=== PATIENT | female | born 1995 | race Two or more races ===

== ENCOUNTER 2019-05-06 20:57 | Emergency (ER) | payer SELFPAY | END 2019-05-06 23:38 | disposition left against medical advice (07) | LOC: ER 20:57 | DX: Z53.21 Procedure and treatment not carried out due to patient leaving prior to being seen by health care provider (principal) ==

== ENCOUNTER 2020-02-23 22:36 | Emergency (ER) | payer OTHER ==
[~2020-02-23] VITALS: Ht 165.1 cm; Wt 56.0 kg
[2020-02-24] MEDS ORDERED: ACETAMINOPHEN 325MG TABLET PO STA (00:26)
[2020-02-24] MEDS ORDERED: BACITRACIN ZINC OINT UDPKT TOP ONE (00:30)
[2020-02-24 02:27] VITALS: BP 124/87
== END 2020-02-24 02:27 | disposition home or self-care (01) ==
LOC: ER 22:36
DX: S00.83XA Contusion of other part of head, initial encounter (principal); W18.39XA Other fall on same level, initial encounter; Y93.89 Activity, other specified; Y92.89 Other specified places as the place of occurrence of the external cause; Y99.8 Other external cause status; R07.81 Pleurodynia; M54.2 Cervicalgia; Z72.89 Other problems related to lifestyle
CPT/HCPCS: 70486; 71101; 99285

== ENCOUNTER 2022-12-09 20:34 | Emergency (ER) | payer MEDICAID, OTHER ==
[~2022-12-09] VITALS: Ht 162.6 cm; Wt 53.0 kg
[2022-12-09 20:44] VITALS: BP 110/77; PULSE 102; RESP 18; TEMP 98.3; O2SAT 98
== END 2022-12-09 23:06 | disposition left against medical advice (07) ==
LOC: ER 20:34
DX: F10.129 Alcohol abuse with intoxication, unspecified (principal); R56.9 Unspecified convulsions; Y90.0 Blood alcohol level of less than 20 mg/100 ml
CPT/HCPCS: 99283

== ENCOUNTER 2023-10-23 19:53 | Inpatient (IN) | payer MEDICAID ==
[~2023-10-23] VITALS: Ht 162.6 cm; Wt 52.6 kg
[~2023-10-23 19:53] MED LIST: LEVE10006 PO
[2023-10-23 20:29] LABS: CLARITY URINE CLOUDY (CLEAR); COLOR URINE ORANGE (YELLOW); GLUCOSE URINE NEGATIVE (NEGATIVE); KETONES URINE NEGATIVE (NEGATIVE); LEUKOCYTE ESTERASE URINE 1+ (NEGATIVE); NITRITE URINE POSITIVE (NEGATIVE); OCCULT BLOOD URINE NEGATIVE (NEGATIVE); PH URINE 7.5 (4.5-8.0); PROTEIN URINE 1+ (NEGATIVE); SPECIFIC GRAVITY URINE 1.026 (1.005-1.030)
[2023-10-23 20:40] LABS: BACTERIA URINE 1+; SQUAMOUS EPITHELIAL CELL URINE 2+ /lpf (RARE/1+)
[2023-10-23] MEDS: ONDANSETRON HCL 4MG/2ML INJ IV ONE (20:45)
[2023-10-23] MEDS: SODIUM CHLORIDE 0.9% 1,000 ML IV ONE (20:45)
[2023-10-23 20:49] LABS: HEMATOCRIT. 27.7 % (36.0-48.0); HEMOGLOBIN. 8.7 g/dL (12.0-16.0); MEAN CORPUSCULAR HEMOGLOBIN 25.7 pg (28.0-32.0); MEAN CORPUSCULAR HGB CONC 31.4 g/dL (31.0-37.0); MEAN CORPUSCULAR VOLUME 81.6 fL (81.0-99.0); MEAN PLATELET VOLUME 6.8 fl (7.4-10.4); RED BLOOD CELL COUNT 3.39 mill/uL (4.2-5.4); RED CELL DISTRIBUTION WIDTH 17.5 % (11.6-14.6)
[2023-10-23 20:55] LABS: CHLORIDE 104 mEq/L (98-107); SODIUM 137 mEq/L (136-145)
[2023-10-23 20:56] LABS: CALCIUM 9.4 mg/dL (8.7-10.4); CARBON DIOXIDE 28 mEq/L (21-32)
[2023-10-23 21:01] LABS: CREATININE 0.5 mg/dL (0.6-1.0); GLUCOSE 103 mg/dL (70-105); UREA NITROGEN BLOOD 11 mg/dL (9-23)
[2023-10-23 21:03] LABS: ALANINE AMINOTRANSFERASE 33 IU/L (10-49); ALBUMIN 4.3 g/dL (3.2-4.8); ASPARTATE AMINOTRANSFERASE 64 IU/L (<34)
[2023-10-23 21:04] LABS: BILIRUBIN TOTAL 3.1 mg/dL (0.1-1.0); PROTEIN TOTAL 6.9 g/dL (6.0-8.3)
[2023-10-23 21:19] LABS: DIFFERENTIAL COMMENT 1; PLATELET 48 x1000/uL (130-400)
[2023-10-23] MEDS: PANTOPRAZOLE SODIUM 40 MG/VIAL IV ONE (22:01)
[2023-10-23 22:18] LABS: HYPOCHROMASIA 1+; PLATELET ESTIMATE MARKEDLY DECREASED
[2023-10-23] MEDS ORDERED: NITROFURANTOIN MACROCRYSTAL 25MG CAPSULE PO ONE (23:30)
[2023-10-23 23:49] LABS: INR 1.4; PARTIAL THROMBOPLASTIN TIME 29.8 sec (23.4-31.0); PROTHROMBIN TIME 14.8 sec (9.6-11.0)
[2023-10-23] MEDS: FOLIC ACID 1 MG, THIAMINE HCL 100 MG, MVI, ADULT NO.1 10 ML in DEXTROSE 5% WATER 1,000 ML IV ONE (23:56)
[2023-10-24] VITALS (8 sets, daily range): BP systolic 109–124; BP diastolic 60–73; PULSE 69–80; RESP 18; TEMP 97.6–98.5
[2023-10-24] MEDS: NITROFURANTOIN MACROCRYSTAL 50MG CAPSULE PO NR (00:31)
[2023-10-24 01:19] LABS: HCG SCREEN NEGATIVE
[2023-10-24] MEDS ORDERED: DOCUSATE SODIUM 100MG CAPSULE PO PRN (03:30)
[2023-10-24] MEDS ORDERED: GUAIFENESIN 200MG/10ML SUGAR FREE UDC PO PRN (03:30)
[2023-10-24] MEDS ORDERED: CLONIDINE 0.1MG TABLET PO PRN (03:30)
[2023-10-24] MEDS ORDERED: IPRATROPIUM/ALBUTEROL 0.5-3(2.5)MG/3ML NEB HHN PRN (03:30)
[2023-10-24] MEDS ORDERED: MAGNESIUM/ALUMINUM HYDROXIDE/SIMETHICONE 30ML UDC PO PRN (03:30)
[2023-10-24] MEDS ORDERED: ACETAMINOPHEN 325MG TABLET PO PRN ×2 (03:30)
[2023-10-24] MEDS ORDERED: LEVOFLOXACIN 750MG PREMIX 150 ML IV SCH (06:00)
[2023-10-24] MEDS: METRONIDAZOLE 500 MG PREMIX 100 ML IV SCH (06:02)
[2023-10-24] MEDS: THIAMINE HCL 100MG TABLET PO SCH (08:41)
[2023-10-24] MEDS: LEVETIRACETAM 1000MG PREMIX 100 ML IV SCH (08:42)
[2023-10-24] MEDS: PANTOPRAZOLE SODIUM 40 MG/VIAL IV SCH ×2 (08:42→21:36)
[2023-10-24] MEDS ORDERED: LEVETIRACETAM 1,000MG in NACL 100ML PREMIX IV SCH (09:00)
[2023-10-24] MEDS ORDERED: THIAMINE HCL 100MG TABLET PO SCH (09:00)
[2023-10-24] MEDS ORDERED: LORAZEPAM 2MG/ML INJ IV PRN (10:00)
[2023-10-24 11:08] LABS: HEMATOCRIT 23.3 % (36.0-48.0); HEMOGLOBIN 7.4 g/dL (12.0-16.0)
[2023-10-24 11:27] LABS: CREATINE KINASE 19 IU/L (34-145)
[2023-10-24] MEDS: DOCUSATE SODIUM 100MG CAPSULE PO SCH (12:19)
[2023-10-24] MEDS: LEVOFLOXACIN 750MG PREMIX 150 ML IV SCH (12:19)
[2023-10-24] MEDS: OCTREOTIDE 1,000 MCG in SODIUM CHLORIDE 0.9% 98 ML IV SCH (14:13)
[2023-10-24] MEDS: DEXT 5%/0.45% NACL 1000ML 1,000 ML IV SCH (14:24)
[2023-10-24 15:28] LABS: ETHANOL BLOOD < 10 mg/dL (<10)
[2023-10-24] MEDS: ONDANSETRON HCL 4MG/2ML INJ IV PRN (16:38)
[2023-10-24 18:27] LABS: HEMATOCRIT 23.6 % (36.0-48.0); HEMOGLOBIN 7.5 g/dL (12.0-16.0)
[2023-10-24 18:37] LABS: CREATINE KINASE 24 IU/L (34-145)
[2023-10-24 22:19] LABS: HEMATOCRIT 23.3 % (36.0-48.0); HEMOGLOBIN 7.4 g/dL (12.0-16.0)
[2023-10-24 22:34] LABS: PHOSPHORUS 3.1 mg/dL (2.5-4.9)
[2023-10-25] VITALS: BP 123/75; PULSE 75; RESP 19; TEMP 98.2
[2023-10-25 03:19] LABS: HEMATOCRIT 22.2 % (36.0-48.0); HEMOGLOBIN 7.2 g/dL (12.0-16.0)
[2023-10-25 03:28] LABS: CARBON DIOXIDE 26 mEq/L (21-32); CHLORIDE 109 mEq/L (98-107); POTASSIUM 3.9 mEq/L (3.5-5.1); SODIUM 140 mEq/L (136-145)
[2023-10-25 03:29] LABS: CALCIUM 9.1 mg/dL (8.7-10.4)
[2023-10-25 03:33] LABS: CREATININE 0.5 mg/dL (0.6-1.0); IRON 65 ug/dL (50-170)
[2023-10-25 03:34] LABS: GLUCOSE 85 mg/dL (70-105)
[2023-10-25 03:35] LABS: ALBUMIN 3.7 g/dL (3.2-4.8); TOTAL IRON BINDING CAPACITY 343 ug/dl (250-425)
[2023-10-25 03:36] LABS: ALANINE AMINOTRANSFERASE 26 IU/L (10-49); ASPARTATE AMINOTRANSFERASE 44 IU/L (<34); BILIRUBIN DIRECT 0.9 mg/dL (<=3.0); BILIRUBIN TOTAL 2.4 mg/dL (0.1-1.0); PROTEIN TOTAL 5.9 g/dL (6.0-8.3)
[2023-10-25 03:39] LABS: UREA NITROGEN BLOOD < 5 mg/dL (9-23)
[2023-10-25 04:00] VITALS: BP 105/59; PULSE 68; RESP 18; TEMP 98
[2023-10-25 04:20] LABS: FERRITIN 34 ng/mL (10-291)
[2023-10-25 04:22] LABS: VITAMIN B12 SERUM 751 pg/mL (211-911)
[2023-10-25 04:33] LABS: HEPATITIS B SURFACE ANTIGEN NEGATIVE (Negative)
[2023-10-25 04:53] LABS: HEPATITIS A AB IGM NEGATIVE (Negative)
[2023-10-25 04:55] LABS: HEPATITIS B CORE AB IGM NEGATIVE (Negative); HEPATITIS C AB NON REACTIVE (Neg) (Negative)
[2023-10-25 07:38] LABS: AMMONIA 71 uMol/L (<32); INR 1.4
[2023-10-25 07:49] LABS: HEMATOCRIT. 21.9 % (36.0-48.0); HEMOGLOBIN. 7.1 g/dL (12.0-16.0); MEAN CORPUSCULAR HEMOGLOBIN 26.7 pg (28.0-32.0); MEAN CORPUSCULAR HGB CONC 32.7 g/dL (31.0-37.0); MEAN CORPUSCULAR VOLUME 81.6 fL (81.0-99.0); MEAN PLATELET VOLUME 7.8 fl (7.4-10.4); RED BLOOD CELL COUNT 2.68 mill/uL (4.2-5.4); RED CELL DISTRIBUTION WIDTH 17.4 % (11.6-14.6)
[2023-10-25 08:00] VITALS: BP 111/77; PULSE 74; RESP 18; TEMP 99
[2023-10-25] MEDS: MULTIVITAMINS,THER W-MINERALS TABLET PO SCH (08:29)
[2023-10-25 08:36] LABS: DIFFERENTIAL COMMENT 1
[2023-10-25 08:39] LABS: WHITE BLOOD COUNT 1.1 x1000/uL (4.5-11.0)
[2023-10-25 12:00] VITALS: BP 107/70; PULSE 69; RESP 18; TEMP 99.1
[2023-10-25] MEDS ORDERED: PROPOFOL 200MG/20ML VIAL IV ONE (12:36)
[2023-10-25] MEDS ORDERED: MEPERIDINE HCL/PF 25MG/ML CPJ IV PRN (13:00)
[2023-10-25] MEDS ORDERED: ONDANSETRON HCL 4MG/2ML INJ IV PRN (13:00)
[2023-10-25] MEDS ORDERED: LABETALOL 5MG/ML 4ML INJ IV PRN (13:00)
[2023-10-25] MEDS ORDERED: HYDROMORPHONE HCL/PF 2MG/ML INJ IV PRN (13:00)
[2023-10-25] MEDS: MAGNESIUM 4 G PREMIX 100 ML IV NR (14:10)
[2023-10-25 15:10] LABS: NUCLEATED RED BLOOD CELLS 1 /100 WBC
[2023-10-25 15:11] LABS: ANISOCYTOSIS 1+; PLATELET ESTIMATE MARKEDLY DECREASED
[2023-10-25 15:12] LABS: PLATELET 40 x1000/uL (130-400)
[2023-10-25] MEDS ORDERED: NALT50TA PO (15:20)
[2023-10-25] MEDS: LACTULOSE 20G/30ML UDC PO SCH (18:37)
[2023-10-25 20:00] VITALS: BP 111/73; PULSE 70; RESP 18; TEMP 99.1
[2023-10-26] VITALS: BP 110/71; PULSE 71; RESP 18; TEMP 99.1
[2023-10-26 04:00] VITALS: BP 98/65; PULSE 66; RESP 18; TEMP 98.1
[2023-10-26 06:40] LABS: AMMONIA 49 uMol/L (<32)
[2023-10-26 06:45] LABS: CHLORIDE 109 mEq/L (98-107); POTASSIUM 3.3 mEq/L (3.5-5.1); SODIUM 141 mEq/L (136-145)
[2023-10-26 06:46] LABS: HEMOGLOBIN. 7.8 g/dL (12.0-16.0); MEAN CORPUSCULAR HEMOGLOBIN 26.8 pg (28.0-32.0); MEAN CORPUSCULAR HGB CONC 32.6 g/dL (31.0-37.0); MEAN CORPUSCULAR VOLUME 82.3 fL (81.0-99.0); MEAN PLATELET VOLUME 7.9 fl (7.4-10.4); RED BLOOD CELL COUNT 2.92 mill/uL (4.2-5.4); RED CELL DISTRIBUTION WIDTH 18.4 % (11.6-14.6)
[2023-10-26 06:48] LABS: CALCIUM 8.8 mg/dL (8.7-10.4); CARBON DIOXIDE 25 mEq/L (21-32)
[2023-10-26 06:53] LABS: CREATININE 0.7 mg/dL (0.6-1.0); GLUCOSE 108 mg/dL (70-105)
[2023-10-26 06:55] LABS: ALANINE AMINOTRANSFERASE 25 IU/L (10-49); ALBUMIN 3.8 g/dL (3.2-4.8); ASPARTATE AMINOTRANSFERASE 49 IU/L (<34); BILIRUBIN DIRECT 0.6 mg/dL (<=3.0); BILIRUBIN TOTAL 1.6 mg/dL (0.1-1.0); PHOSPHORUS 3.2 mg/dL (2.5-4.9); PROTEIN TOTAL 6.1 g/dL (6.0-8.3)
[2023-10-26 06:57] LABS: DIFFERENTIAL COMMENT 1; PLATELET 42 x1000/uL (130-400); WHITE BLOOD COUNT 1.5 x1000/uL (4.5-11.0)
[2023-10-26 07:02] LABS: UREA NITROGEN BLOOD < 5 mg/dL (9-23)
[2023-10-26] MEDS ORDERED: CARV3.1242 MT ×2 (11:43→16:43)
[2023-10-26] MEDS ORDERED: LACT10SO7 PO (11:43)
[2023-10-26] MEDS ORDERED: METR-167 MT ×2 (11:43→16:43)
[2023-10-26 12:00] VITALS: BP 103/62; PULSE 69; RESP 17; TEMP 97.4
[2023-10-26] MEDS: POTASSIUM CHLORIDE 20MEQ TABLET SR PO NR (12:07)
[2023-10-26 13:59] VITALS: BP 103/62; PULSE 69; TEMP 98; O2SAT 94
[2023-10-26 15:50] LABS: ANISOCYTOSIS 1+; PLATELET ESTIMATE DECREASED
[2023-10-26] MEDS ORDERED: PROPRANOLOL HCL 10MG TABLET PO SCH (21:00)
== END 2023-10-26 16:00 | disposition home or self-care (01) ==
LOC: ER 19:53 → 5WST 23:20 → EDBEDREQTM 10-24 00:21 → EDBEDREQ 10-24 00:21 → 7EST 10-24 06:35
PROVIDERS: ADMIT Internal Medicine; ATTEND Internal Medicine
PROC: 0DB78ZX Excision of Stomach, Pylorus, Via Natural or Artificial Opening Endoscopic, Diagnostic (ICD-10-PCS; principal; 2023-10-25)
DX: K74.60 Unspecified cirrhosis of liver (principal); I85.11 Secondary esophageal varices with bleeding; D61.818 Other pancytopenia; D68.9 Coagulation defect, unspecified; R16.2 Hepatomegaly with splenomegaly, not elsewhere classified; K76.6 Portal hypertension; K52.9 Noninfective gastroenteritis and colitis, unspecified; S00.10XA Contusion of unspecified eyelid and periocular area, initial encounter; G40.909 Epilepsy, unspecified, not intractable, without status epilepticus; F10.10 Alcohol abuse, uncomplicated; F12.10 Cannabis abuse, uncomplicated; K21.9 Gastro-esophageal reflux disease without esophagitis; K76.0 Fatty (change of) liver, not elsewhere classified; K31.9 Disease of stomach and duodenum, unspecified; Y90.9 Presence of alcohol in blood, level not specified; K29.70 Gastritis, unspecified, without bleeding; K31.89 Other diseases of stomach and duodenum; W18.39XA Other fall on same level, initial encounter; Y93.89 Activity, other specified; Y92.89 Other specified places as the place of occurrence of the external cause; Y99.8 Other external cause status
CPT/HCPCS: 36415; 70486; 74177; 76700; 80048; 80076; 80320; 81003; 82140; 82248; 82270; 82550; 82607; 82728; 83540; 83550; 83735; 84100; 84703; 85014; 85018; 85025; 85044; 86705; 86709; 86850; 86870; 86900; 87015; 87045; 87177; 87209; 87340; 87427; 87449; 88305; 88312; 88313; 89055; 99285; C1893; J1953; J1956; J2354; J2405; J2470; J2704; J3411; J3475; J3490; J7030; J7050; J7070; G0480

== ENCOUNTER 2024-04-10 00:16 | Inpatient (IN) | payer MEDICAID ==
[~2024-04-10] VITALS: Ht 167.6 cm; Wt 55.3 kg
[~2024-04-10 00:16] MED LIST changes: +CARV3.1242 MT; +FURO20TA4 PO; +PROT40 PO; +SUCR1TAB30 PO
[2024-04-10] MEDS ORDERED: LEVETIRACETAM 1,000MG in NACL 100ML PREMIX IV SCH (01:00)
[2024-04-10 01:04] LABS: HEMATOCRIT. 35.3 % (36.0-48.0); HEMOGLOBIN. 11.2 g/dL (12.0-16.0); MEAN CORPUSCULAR HEMOGLOBIN 25.4 pg (28.0-32.0); MEAN CORPUSCULAR HGB CONC 31.7 g/dL (31.0-37.0); MEAN CORPUSCULAR VOLUME 80.2 fL (81.0-99.0); MEAN PLATELET VOLUME 8.9 fl (7.4-10.4); PLATELET 71 x1000/uL (130-400); RED BLOOD CELL COUNT 4.41 mill/uL (4.2-5.4); RED CELL DISTRIBUTION WIDTH 22.8 % (11.6-14.6); WHITE BLOOD COUNT 9.1 x1000/uL (4.5-11.0)
[2024-04-10 01:07] LABS: DIFFERENTIAL COMMENT 1
[2024-04-10] MEDS: SODIUM CHLORIDE 0.9% 1,000 ML IV ONE (01:07)
[2024-04-10] MEDS: LORAZEPAM 2MG/ML INJ IV ONE (01:07)
[2024-04-10 01:19] LABS: CHLORIDE 107 mEq/L (98-107); SODIUM 141 mEq/L (136-145)
[2024-04-10 01:20] LABS: CALCIUM 9.2 mg/dL (8.7-10.4); CARBON DIOXIDE 22 mEq/L (21-32)
[2024-04-10 01:25] LABS: GLUCOSE 180 mg/dL (70-105); UREA NITROGEN BLOOD 18 mg/dL (9-23)
[2024-04-10 01:31] LABS: ETHANOL BLOOD < 10 mg/dL (<10)
[2024-04-10] MEDS: LEVETIRACETAM 1000MG PREMIX 100 ML IV NR (01:39)
[2024-04-10 01:42] LABS: HCG SCREEN NEGATIVE
[2024-04-10 04:05] LABS: ALANINE AMINOTRANSFERASE 32 IU/L (10-49); ALBUMIN 4.5 g/dL (3.2-4.8); ASPARTATE AMINOTRANSFERASE 48 IU/L (<34); BILIRUBIN DIRECT 0.4 mg/dL (<=3.0); BILIRUBIN TOTAL 1.2 mg/dL (0.1-1.0); PROTEIN TOTAL 7.6 g/dL (6.0-8.3)
[2024-04-10 04:30] VITALS: BP 107/68; PULSE 87; RESP 18; TEMP 36.3068
[2024-04-10] MEDS ORDERED: IPRATROPIUM/ALBUTEROL 0.5-3(2.5)MG/3ML NEB HHN PRN (05:45)
[2024-04-10] MEDS ORDERED: SPIR50TA5 (06:05)
[2024-04-10] MEDS ORDERED: NALT50TA6 (06:05)
[2024-04-10] MEDS ORDERED: OXYC5TAB3 (06:07)
[2024-04-10] MEDS: PANTOPRAZOLE SODIUM 40 MG/VIAL IV SCH (06:42)
[2024-04-10 07:17] LABS: ANISOCYTOSIS 3+
[2024-04-10 07:18] LABS: HYPOCHROMASIA 1+
[2024-04-10 07:19] LABS: PLATELET ESTIMATE DECREASED
[2024-04-10 08:00] VITALS: BP 110/52; PULSE 84; RESP 18; TEMP 36.33624; O2SAT 99
[2024-04-10] MEDS: LEVETIRACETAM 1000MG PREMIX 100 ML IV SCH (10:09)
[2024-04-10] MEDS: MVI, ADULT NO.1 10 ML, FOLIC ACID 1 MG, THIAMINE HCL 100 MG in SODIUM CHLORIDE 0.9% 1,0... IV NR (11:04)
[2024-04-10 12:00] VITALS: BP 116/73; PULSE 83; RESP 20; TEMP 36.00288; O2SAT 99
[2024-04-10 16:00] VITALS: BP 120/69; PULSE 89; RESP 18; TEMP 36.114; O2SAT 100
[2024-04-10 16:46] LABS: CREATINE KINASE MB FRACTION 5.5 ng/mL (0.5-3.6)
[2024-04-10 16:47] LABS: AMMONIA 57 uMol/L (<32)
[2024-04-10 16:48] LABS: CREATINE KINASE 127 IU/L (34-145)
[2024-04-10 16:55] LABS: INR 1.3; PROTHROMBIN TIME 14.5 sec (9.6-11.0)
[2024-04-10 17:03] LABS: CLARITY URINE CLOUDY (CLEAR); COLOR URINE DARK YELLOW (YELLOW); GLUCOSE URINE NEGATIVE (NEGATIVE); KETONES URINE TRACE (NEGATIVE); LEUKOCYTE ESTERASE URINE NEGATIVE (NEGATIVE); NITRITE URINE NEGATIVE (NEGATIVE); OCCULT BLOOD URINE NEGATIVE (NEGATIVE); PROTEIN URINE 1+ (NEGATIVE); SPECIFIC GRAVITY URINE 1.028 (1.005-1.030)
[2024-04-10 17:05] LABS: TROPONIN I HIGH SENSITIVITY 6213 ng/L (3.0-34)
[2024-04-10 17:22] LABS: *AMPHETAMINES SCREEN URINE NEGATIVE (NEGATIVE)
[2024-04-10 17:23] LABS: *BARBITURATES SCREEN URINE NEGATIVE (NEGATIVE); *BENZODIAZEPINES SCREEN URINE PRESUMPTIVE POSITIVE (NEGATIVE); *COCAINE SCREEN URINE NEGATIVE (NEGATIVE); CANNABINOID URINE SCREEN PRESUMPTIVE POSITIVE (NEGATIVE); ECSTASY MDMA SCREEN URINE NEGATIVE (NEGATIVE); METHADONE URINE SCREEN NEGATIVE (NEGATIVE); OPIATES URINE SCREEN NEGATIVE (NEGATIVE); PHENCYCLIDINE URINE SCREEN NEGATIVE (NEGATIVE)
[2024-04-10 18:04] LABS: BACTERIA URINE NONE SEEN; RBC URINE NONE SEEN /hpf (0-2); SQUAMOUS EPITHELIAL CELL URINE NONE SEEN /lpf (RARE/1+); WBC URINE NONE SEEN /hpf (0-2); YEAST URINE NONE SEEN
[2024-04-10 20:00] VITALS: BP 106/57; PULSE 72; RESP 18; TEMP 36.78072; O2SAT 100
[2024-04-10] MEDS: DEXT 5%/0.9% NACL 1,000 ML IV SCH (20:57)
[2024-04-10 22:15] LABS: CREATINE KINASE MB FRACTION 4.1 ng/mL (0.5-3.6)
[2024-04-11] VITALS: BP 98/55; PULSE 63; RESP 18; TEMP 36.6696; O2SAT 100
[2024-04-11] MEDS: ONDANSETRON HCL 4MG/2ML INJ IV PRN (02:34)
[2024-04-11 04:00] VITALS: BP 114/75; PULSE 69; RESP 18; TEMP 37.00296; O2SAT 100
[2024-04-11 06:44] LABS: BASOPHILS % 0.2 % (0.0-2.0); EOSINOPHILS % 0.1 % (0.0-5.0); HEMATOCRIT. 32.2 % (36.0-48.0); HEMOGLOBIN. 10.3 g/dL (12.0-16.0); LYMPHOCYTES % 11.2 % (20.0-50.0); MEAN CORPUSCULAR HGB CONC 32.1 g/dL (31.0-37.0); MEAN CORPUSCULAR VOLUME 81.1 fL (81.0-99.0); MONOCYTES % 4.8 % (2.0-8.0); NEUTROPHILS % 83.7 % (40.0-76.0); RED BLOOD CELL COUNT 3.97 mill/uL (4.2-5.4); RED CELL DISTRIBUTION WIDTH 22.8 % (11.6-14.6)
[2024-04-11 06:46] LABS: CALCIUM 9.3 mg/dL (8.7-10.4); CARBON DIOXIDE 24 mEq/L (21-32); CHLORIDE 111 mEq/L (98-107); POTASSIUM 3.9 mEq/L (3.5-5.1); SODIUM 144 mEq/L (136-145)
[2024-04-11 06:51] LABS: CREATININE 0.6 mg/dL (0.6-1.0); GLUCOSE 126 mg/dL (70-105)
[2024-04-11 06:52] LABS: LDL CHOLESTEROL 48 mg/dL (5-100); TRIGLYCERIDE 79 mg/dL (0-150); UREA NITROGEN BLOOD 16 mg/dL (9-23)
[2024-04-11 06:54] LABS: CHOLESTEROL 132 mg/dL (<200); HDL CHOLESTEROL 58 mg/dL (>65)
[2024-04-11 06:56] LABS: T4 FREE 1.09 ng/dL (0.89-1.76); THYROID STIMULATING HORMONE 1.97 uIU/mL (0.55-4.78)
[2024-04-11 07:44] VITALS: BP 111/67; PULSE 71; RESP 18; TEMP 36.72516; O2SAT 97
[2024-04-11 08:04] LABS: DIFFERENTIAL COMMENT 1
[2024-04-11 12:15] VITALS: BP 113/75; PULSE 73; RESP 16; TEMP 36.61404; O2SAT 96
[2024-04-11 14:04] LABS: BG BASE EXCESS -0.4 mmol/L (-2.0-3.0); BG CARBOXYHEMOGLOBIN 0.5 % (0.5-1.5); BG DEOXYHEMOGLOBIN 4.2 % (0.0-5.0); BG FRACTION INSPIRED OXYGEN 21; BG METHEMOGLOBIN 0.3 % (0.5-1.5); BG OXYGEN SATURATION 95.8 % (94.0-98.0); BG PCO2 38.1 mmHg (32.0-45.0); BG PH 7.417 (7.350-7.450); BG PO2 77.2 mmHg (83.0-108.0); BG SAMPLE SITE RIGHT RADIAL; BG TOTAL HEMOGLOBIN 9.6 g/dL (12.0-16.0); BG VENT MODE ROOM AIR
[2024-04-11 16:00] VITALS: BP 114/75; PULSE 65; RESP 16; TEMP 36.50292; O2SAT 96
[2024-04-11] MEDS ORDERED: DIPHENHYDRAMINE 25MG CAPSULE PO NR (18:52)
[2024-04-11 20:00] VITALS: BP 114/73; PULSE 69; RESP 20; TEMP 37.503; O2SAT 98
[2024-04-11] MEDS ORDERED: CHLORDIAZEPOXIDE 25MG CAPSULE PO PRN ×3 (20:30)
[2024-04-11] MEDS ORDERED: LORAZEPAM 1MG TABLET PO PRN ×2 (20:30)
[2024-04-11] MEDS: MULTIVITAMINS,THER W-MINERALS TABLET PO SCH (21:11)
[2024-04-11] MEDS: FOLIC ACID 1MG TABLET PO SCH (21:11)
[2024-04-11] MEDS: THIAMINE HCL 100 MG/1 ML 2ML VIAL IV SCH (21:11)
[2024-04-11] MEDS: LORAZEPAM 1MG TABLET PO PRN (21:17)
[2024-04-12] VITALS: BP 124/79; PULSE 67; RESP 18; TEMP 37.00296; O2SAT 97
[2024-04-12] MEDS: LORAZEPAM 2MG/ML INJ IV PRN (03:14)
[2024-04-12 04:00] VITALS: BP 103/64; PULSE 62; RESP 20; TEMP 37.11408; O2SAT 98
[2024-04-12] MEDS ORDERED: DIPHENHYDRAMINE 25MG CAPSULE PO PRN (06:00)
[2024-04-12 12:00] VITALS: BP 117/78; PULSE 85; RESP 20; TEMP 36.83628; O2SAT 99
[2024-04-12 17:06] LABS: BASOPHILS % 0.4 % (0.0-2.0); EOSINOPHILS % 0.3 % (0.0-5.0); HEMATOCRIT. 32.4 % (36.0-48.0); HEMOGLOBIN. 10.2 g/dL (12.0-16.0); LYMPHOCYTES % 23.8 % (20.0-50.0); MEAN CORPUSCULAR HEMOGLOBIN 25.8 pg (28.0-32.0); MEAN CORPUSCULAR HGB CONC 31.5 g/dL (31.0-37.0); MEAN CORPUSCULAR VOLUME 81.9 fL (81.0-99.0); MEAN PLATELET VOLUME 8.6 fl (7.4-10.4); MONOCYTES % 7.6 % (2.0-8.0); NEUTROPHILS % 67.9 % (40.0-76.0); RED BLOOD CELL COUNT 3.96 mill/uL (4.2-5.4); RED CELL DISTRIBUTION WIDTH 22.9 % (11.6-14.6); WHITE BLOOD COUNT 2.4 x1000/uL (4.5-11.0)
[2024-04-12 17:07] LABS: DIFFERENTIAL COMMENT 1
[2024-04-12 17:10] LABS: PLATELET 32 x1000/uL (130-400)
[2024-04-12 17:12] LABS: CHLORIDE 110 mEq/L (98-107); POTASSIUM 3.7 mEq/L (3.5-5.1); SODIUM 144 mEq/L (136-145)
[2024-04-12 17:13] LABS: CALCIUM 9.5 mg/dL (8.7-10.4); CARBON DIOXIDE 25 mEq/L (21-32)
[2024-04-12 17:18] LABS: CREATININE 0.6 mg/dL (0.6-1.0); GLUCOSE 97 mg/dL (70-105); UREA NITROGEN BLOOD 12 mg/dL (9-23)
[2024-04-12 20:00] VITALS: BP 119/83; PULSE 78; RESP 18; TEMP 37.72524; O2SAT 98
[2024-04-12] MEDS: FAMOTIDINE 20MG TABLET PO SCH (22:31)
[2024-04-12] MEDS: MELATONIN 3MG TABLET PO SCH (22:56)
[2024-04-13] VITALS: BP 114/62; PULSE 80; RESP 20; TEMP 36.61404; O2SAT 98
[2024-04-13 04:00] VITALS: BP 121/72; PULSE 70; RESP 18; TEMP 37.16964; O2SAT 98
[2024-04-13 05:11] LABS: CARBON DIOXIDE 24 mEq/L (21-32); CHLORIDE 109 mEq/L (98-107); POTASSIUM 3.5 mEq/L (3.5-5.1); SODIUM 142 mEq/L (136-145)
[2024-04-13 05:13] LABS: CALCIUM 9.5 mg/dL (8.7-10.4)
[2024-04-13 05:17] LABS: CREATININE 0.6 mg/dL (0.6-1.0); GLUCOSE 95 mg/dL (70-105); UREA NITROGEN BLOOD 10 mg/dL (9-23)
[2024-04-13 07:31] LABS: HEMATOCRIT. 31.1 % (36.0-48.0); MEAN CORPUSCULAR HEMOGLOBIN 25.7 pg (28.0-32.0); MEAN CORPUSCULAR HGB CONC 32.1 g/dL (31.0-37.0); MEAN CORPUSCULAR VOLUME 79.9 fL (81.0-99.0); MEAN PLATELET VOLUME 9.3 fl (7.4-10.4); RED BLOOD CELL COUNT 3.89 mill/uL (4.2-5.4); RED CELL DISTRIBUTION WIDTH 22.6 % (11.6-14.6)
[2024-04-13 08:00] VITALS: BP 115/67; PULSE 88; RESP 20; TEMP 36.05844; O2SAT 99
[2024-04-13 09:02] LABS: DIFFERENTIAL COMMENT 1; PLATELET 32 x1000/uL (130-400); WHITE BLOOD COUNT 1.8 x1000/uL (4.5-11.0)
[2024-04-13] MEDS: ARIPIPRAZOLE 2MG TABLET PO SCH (09:30)
[2024-04-13 12:00] VITALS: BP 140/94; PULSE 85; RESP 18; TEMP 36.114; O2SAT 98
[2024-04-13] MEDS ORDERED: ARIP2TAB3 PO (13:18)
[2024-04-13] MEDS ORDERED: FOLI-43 PO (13:18)
[2024-04-13] MEDS ORDERED: TRAZ-251 PO (13:18)
[2024-04-13] MEDS ORDERED: THIA100T72 PO (13:18)
[2024-04-13 14:23] LABS: ANISOCYTOSIS 2+; MICROCYTOSIS 1+; PLATELET ESTIMATE MARKEDLY DECREASED
[2024-04-13 16:00] VITALS: BP 90/43; PULSE 58; RESP 18; TEMP 36.05844; O2SAT 98
[2024-04-13 20:00] VITALS: BP 119/74; PULSE 68; RESP 18; TEMP 36.50292; O2SAT 99
[2024-04-13] MEDS: TRAZODONE HCL 50MG TABLET PO SCH (21:49)
[2024-04-14] VITALS: BP 112/64; PULSE 62; RESP 18; TEMP 36.28068; O2SAT 100
[2024-04-14 04:00] VITALS: BP 144/82; PULSE 59; RESP 18; TEMP 36.28068; O2SAT 100
[2024-04-14 06:51] LABS: CARBON DIOXIDE 25 mEq/L (21-32); CHLORIDE 109 mEq/L (98-107); POTASSIUM 3.5 mEq/L (3.5-5.1); SODIUM 143 mEq/L (136-145)
[2024-04-14 06:52] LABS: CALCIUM 9.2 mg/dL (8.7-10.4)
[2024-04-14 06:57] LABS: CREATININE 0.5 mg/dL (0.6-1.0); GLUCOSE 96 mg/dL (70-105); UREA NITROGEN BLOOD 6 mg/dL (9-23)
[2024-04-14 06:59] LABS: PHOSPHORUS 3.4 mg/dL (2.5-4.9)
[2024-04-14 08:00] VITALS: BP 106/57; PULSE 64; RESP 18; TEMP 36.3; O2SAT 100
[2024-04-14 09:48] LABS: HEMOGLOBIN. 8.9 g/dL (12.0-16.0); MEAN CORPUSCULAR HEMOGLOBIN 25.6 pg (28.0-32.0); MEAN CORPUSCULAR HGB CONC 31.9 g/dL (31.0-37.0); MEAN CORPUSCULAR VOLUME 80.2 fL (81.0-99.0); MEAN PLATELET VOLUME 9.1 fl (7.4-10.4); RED BLOOD CELL COUNT 3.49 mill/uL (4.2-5.4); RED CELL DISTRIBUTION WIDTH 22.6 % (11.6-14.6)
[2024-04-14 10:05] LABS: DIFFERENTIAL COMMENT 1
[2024-04-14 10:10] LABS: PLATELET 34 x1000/uL (130-400); WHITE BLOOD COUNT 1.3 x1000/uL (4.5-11.0)
[2024-04-14] MEDS: ARIPIPRAZOLE 5MG TABLET PO SCH (10:13)
[2024-04-14 10:46] LABS: PLATELET 29 x1000/uL (130-400)
[2024-04-14] MEDS: MAGNESIUM 2 G PREMIX 50 ML IV NR (11:00)
[2024-04-14] MEDS: LEVETIRACETAM 500MG/5ML CUP PO SCH (11:38)
[2024-04-14 12:00] VITALS: BP 120/76; PULSE 59; RESP 18; TEMP 36.1; O2SAT 100
[2024-04-14] MEDS: MAGNESIUM GLUCONATE 500MG TABLET PO SCH (12:09)
[2024-04-14] MEDS ORDERED: ABIL5 MT (14:10)
[2024-04-14] MEDS ORDERED: LEVO-65 MT (14:10)
[2024-04-14 16:00] VITALS: BP 139/77; PULSE 20; RESP 20; TEMP 36.7; O2SAT 100
[2024-04-14 16:56] LABS: ANISOCYTOSIS 2+; PLATELET ESTIMATE MARKEDLY DECREASED
[2024-04-14] MEDS ORDERED: LEVE1000 MT (18:31)
[2024-04-14 19:47] VITALS: BP 139/77; PULSE 96; TEMP 98.1; O2SAT 100
[2024-04-15] MEDS ORDERED: THIAMINE HCL 100MG TABLET PO SCH (09:00)
== END 2024-04-14 20:35 | disposition home or self-care (01) | DRG 53 ==
LOC: ER 00:16 → 7WST 00:28 → EDBEDREQ 02:43 → EDBEDREQTM 02:43
PROVIDERS: ADMIT Hospitalist; ATTEND Hospitalist
PROC: 4A10X4Z Monitoring of Central Nervous Electrical Activity, External Approach (ICD-10-PCS; principal; 2024-04-14)
DX: G40.901 Epilepsy, unspecified, not intractable, with status epilepticus (principal); I21.A1 Myocardial infarction type 2; D69.6 Thrombocytopenia, unspecified; I85.10 Secondary esophageal varices without bleeding; K76.6 Portal hypertension; K70.30 Alcoholic cirrhosis of liver without ascites; F10.10 Alcohol abuse, uncomplicated; D64.9 Anemia, unspecified; R44.0 Auditory hallucinations; K70.10 Alcoholic hepatitis without ascites; Z79.899 Other long term (current) drug therapy
CPT/HCPCS: 36415; 36600; 70551; 76700; 80048; 80061; 80076; 80305; 80320; 81003; 82140; 82375; 82542; 82550; 82553; 82805; 83605; 83735; 84100; 84145; 84439; 84443; 84484; 84703; 85025; 85044; 85651; 92610; 93005; 93306; 93970; 95816; 99291; A4606; J1953; J2060; J2405; J2470; J3411; J3475; J3490; J7030; J7042; G0480